=== PATIENT | male | born 1960 | race Caucasian/White ===

== ENCOUNTER 2017-06-25 21:27 | Emergency (ER) | payer SELFPAY ==
[2017-06-25] MEDS ORDERED: HYDROCODONE/APAP 10/325 TABLET PO ONE (21:59)
[2017-06-25] MEDS ORDERED: DIAZEPAM 5 MG TABLET PO ONE (21:59)
--- NOTE | 2017-06-25 22:03 | Emergency Department Record ---
History of Present Illness - General Chief Complaint: Back Pain/Injury Stated Complaint: BACK PAIN Time Seen by Provider: 06/25/17 21:27 Source: Patient Mode of Arrival: Ambulatory Limitations: No limitations - History of Present Illness Initial Comments: 57 yo male presents to ED with a CC of low-mid back pain that began yesterday morning. Patient reports that he was at work yesterday morning when he "felt a twinge of pain in the right back as thought I moved wrong", and the pain has worsened since that time. Patient reports pain with movement in and deep breathing, denies direct blow, fall , or injury. Patient denies numbness, tingling, or weakness to the lower extremities, denies urinary retention or groin numbness. Patient denies taking anything for his pain symptoms. MD Complaint: Back pain Onset/Timin -: Days(s) Similar Symptoms Previously: Yes Place: Other Radiation: None Severity: Moderate Severity scale (1-10): 10 Quality: Sharp Consistency: Constant Improves With: None Worsens With: Deep breaths/cough, Movement Context: Unknown Associated Symptoms: Denies other symptoms Treatment Prior to Arrival Comment:: HAS NOT TAKEN ANY OTC MEDS - Related Data Home Medications Medication Instructions Recorded Confirmed Last Taken Potassium Chloride [Klor-Con] 20 meq PO DAILY 01/29/16 06/25/17 06/25/17 Aspirin [Aspir-Low] 81 mg PO DAILY 06/25/17 06/25/17 06/25/17 Atorvastatin Calcium 20 mg PO DAILY 06/25/17 06/25/17 06/25/17 Carvedilol [Coreg] 12.5 mg PO BID 06/25/17 06/25/17 06/25/17 Furosemide [Lasix] 40 mg PO BID 06/25/17 06/25/17 06/25/17 Previous Rx's Medication Instructions Recorded Diazepam [Valium] 5 mg PO Q8H PRN #10 tab 06/25/17 Hydrocodone/Acetaminophen [[place] 1 tab PO Q6H PRN #15 tab 06/25/17 5mg/325mg] Allergies Allergy/AdvReac Type Severity Reaction Status Date / Time codeine Allergy coma Verified 01/29/16 12:00 Travel Screening - Travel/Exposure Within Last 30 Days Have you traveled within the last 30 days?: No - Travel/Exposure Within Last Year Have you traveled outside the [place] in the last year?: No - Additonal Travel Details Have you been exposed to anyone with a communicable illness?: No Review of Systems Constitutional: Denies: Chills, Fever, Malaise, Night sweats Eyes: Denies: Eye discharge, Eye pain ENT: Denies: Congestion, Ear pain, Epistaxis Respiratory: Denies: Cough, Dyspnea Cardiovascular: Denies: Chest pain, Dyspnea on exertion Endocrine: Denies: Fatigue, Heat or cold intolerance Gastrointestinal: Denies: Abdominal pain, Nausea, Vomiting Genitourinary: Denies: Incontinence, Retention Musculoskeletal: Reports: Back pain. Denies: Arthralgia, Gout, Joint swelling Skin: Denies: Bruising, Change in color Neurological: Denies: Abnormal gait, Confusion, Headache, Seizure Psychiatric: Denies: Anxiety Hematological/Lymphatic: Denies: Anemia, Blood Clots Past Medical History - SOCIAL HISTORY Smoking Status: Former smoker Alcohol Use: None Drug Use: None - RESPIRATORY Hx Respiratory Disorders: No - CARDIOVASCULAR Hx Cardio Disorders: Yes Hx CHF: Yes Hx Hypertension: Yes Comment:: HEART VALVE REPLACED - NEURO Hx Neuro Disorders: No - GI Hx GI Disorders: No - Hx Genitourinary Disorders: No - ENDOCRINE Hx Endocrine Disorders: No - MUSCULOSKELETAL Hx Musculoskeletal Disorders: No - PSYCH Hx Psych Problems: No - HEMATOLOGY/ONCOLOGY Hx Hematology/Oncology Disorders: No Family Medical History Any Significant Family History?: Yes Hx Diabetes: Father Hx Heart Disease: Father Physical Exam - General General Appearance: Alert, Oriented x3, Cooperative, Moderate distress (due to his pain symptoms) Limitations: No limitations - Head Head exam: Atraumatic, Normocephalic, Normal inspection Head exam detail: negative: Abrasion, Contusion, Parks's sign, General tenderness, Hematoma, Laceration - Eye Eye exam: Normal appearance. negative: Conjunctival injection, Periorbital swelling, Periorbital tenderness, Scleral icterus - ENT Ear exam: negative: Auricular hematoma, Auricular trauma Nasal Exam: negative: Active bleeding, Discharge, Dried blood, Foreign body Mouth exam: negative: Drooling, Laceration, Muffled voice, Tongue elevation - Neck Neck exam: Normal inspection. negative: Meningismus, Tenderness - Respiratory Respiratory exam: Normal lung sounds bilaterally. negative: Rales, Respiratory distress, Rhonchi, Stridor - Cardiovascular Cardiovascular Exam: Regular rate, Normal rhythm, Normal heart sounds - GI/Abdominal GI/Abdominal exam: Soft. negative: Rebound, Rigid, Tenderness - Rectal Rectal exam: Deferred - exam: Deferred - Extremities Extremities exam: negative: Calf tenderness, Pedal edema, Tenderness - Back Back exam: Reports: Paraspinal tenderness (lower thoracic spine region). Denies : CVA tenderness (R), CVA tenderness (L) - Neurological Neurological exam: Alert, Normal gait, Oriented X3 - Psychiatric Psychiatric exam: Normal affect, Normal mood - Skin Skin exam: Normal color. negative: Abrasion Type of lesion: negative: abrasion Course Vital Signs 06/25/17 21:37 Temperature 98.5 F Pulse Rate [ 96 H Pulse Ox Probe] Respiratory 18 Rate Blood Pressure 132/82 [Left Arm] Pulse Ox 95 - Reevaluation(s) Reevaluation #1: 06/25/17 23:16 Thoracic Spine: Mild spurring present, nothing acute. Lumbar Spine: Mild spurring present, nothing acute. Reevaluation #2: 06/25/17 23:50 Patient reassessed and reports significant improvement in his pain symptoms, is able to sit up, and appears improved. Patient appears stable for discharge at this time. Disposition Disposition: Discharge Clinical Impression: Low back strain Qualifiers: Encounter type: initial encounter Qualified Code(s): S39.012A - Strain of muscle, fascia and tendon of lower back, initial encounter Disposition: Home, Self-Care Condition: (2) Stable Instructions: Low Back Strain (ED) Additional Instructions: Return to ED if your symptoms worsen or if you have any concerns. Valium and [place] as directed. Follow-up with your family doctor in 3-5 days as directed. Prescriptions: Diazepam [Valium] 5 mg PO Q8H PRN #10 tab PRN Reason: Pain - Moderate (5-7) Hydrocodone/Acetaminophen [[place] 5mg/325mg] 1 tab PO Q6H PRN #15 tab PRN Reason: Pain - General Forms: Patient Portal Access Time of Disposition: 23:17 Quality - Quality Measures Quality Measures: N/A - Blood Pressure Screening Does Patient Have Any of the Following: No Blood Pressure Classification: Pre-Hypertensive BP Reading Systolic Measurement: 136 Diastolic Measurement: 78 Screening for High Blood Pressure: < Pre-Hypertensive BP, F/U Documented > [ [id number]] Pre-Hypertensive Follow-up Interventions: Referral to alternative/primary care provider.
--- NOTE | 2017-06-28 08:48 | RADIOLOGY REPORT ---
EXAM: THORACIC SPINE HISTORY: LOWER BACK PAIN FOR TWO DAYS, NO KNOWN INJURY. TECHNIQUE: AP and lateral views of the thoracic spine were obtained comprising a total of five views. Comparison: No prior thoracic spine series, but comparison is made with the prior two view chest x-ray dated 01/29/16 which includes a lateral view. FINDINGS: The patient is seen to be postop sternotomy today, new since the prior study. Mild spurring in the thoracic spine. Moderate spurring in the incidentally visualized cervical spine as well. The thoracic spine appears otherwise negative. IMPRESSION: 1. MILD SPURRING IN THE THORACIC SPINE. THE THORACIC SPINE APPEARS OTHERWISE NEGATIVE. 2. POSTOP STERNOTOMY WITH A VALVE PROSTHESIS, NEW SINCE 01/29/16. 3. SOME HYPERTROPHIC SPURRING IN THE CERVICAL SPINE WELL. JOB [facility]BER: [id number] [facility]
--- NOTE | 2017-06-28 08:50 | RADIOLOGY REPORT ---
EXAM: LUMBAR SPINE, THREE VIEWS HISTORY: LOWER BACK PAIN FROM NO KNOWN INJURY, FOR TWO DAYS. TECHNIQUE: AP, translumbar lateral, and lumbosacral lateral views of the lumbar spine were obtained. Comparison: None. FINDINGS: There are four true lumbar type vertebra present. Mild spurring in the lumbar spine. The lumbar intervertebral disk spaces are maintained. The lumbar spine appears otherwise negative. IMPRESSION: 1. FOUR TRUE LUMBAR TYPE VERTEBRA. 2. MILD SPURRING IN THE LUMBAR SPINE. [facility]: [id number] [facility]
== END 2017-06-25 23:43 | disposition home or self-care (01) ==
LOC: ER 21:27
DX: S39.012A Strain of muscle, fascia and tendon of lower back, initial encounter (principal); M54.6 Pain in thoracic spine; X50.9XXA Other and unspecified overexertion or strenuous movements or postures, initial encounter; Y99.0 Civilian activity done for income or pay
CPT/HCPCS: 99283; 99284; 72100; 72072; J3490 ×2